=== PATIENT | male | born 1985 | race Two or more races ===

== ENCOUNTER 2020-10-23 22:49 | Emergency (ER) | payer OTHER ==
[2020-10-23 22:56] VITALS: BP 129/82; PULSE 71; TEMP 97; BMI 30.7
[2020-10-23] MEDS ORDERED: ACETAMINOPHEN 500 MG TABLET (FP) PO ONE (23:27)
[2020-10-23] MEDS ORDERED: DIPHTH,PERTUSS(ACELL),TET 0.5 ML DISP.SYRIN IM ONE ×2 (23:34→23:44)
[2020-10-23] MEDS ORDERED: ACETAMINOPHEN 500 MG TABLET (FP) ONE (23:47)
[2020-10-24] MEDS ORDERED: CYCLOBENZAPRINE HCL 5 MG TABLET PO ONE (01:09)
[2020-10-24] MEDS ORDERED: CYCLOBENZAPRINE HCL 10 MG TABLET (FP) ONE (01:13)
== END 2020-10-24 01:44 | disposition home or self-care (01) ==
LOC: JER 22:49
PROC: 3E0234Z Introduction of Serum, Toxoid and Vaccine into Muscle, Percutaneous Approach (ICD-10-PCS; principal; 2020-10-23)
DX: M62.838 Other muscle spasm (principal); M54.9 Dorsalgia, unspecified; V29.9XXA Motorcycle rider (driver) (passenger) injured in unspecified traffic accident, initial encounter; Y92.9 Unspecified place or not applicable
CPT/HCPCS: 70450-TC; 72125-TC; 72128-TC; 72131-TC; 73610-TC-LT-FY; 73630-TC-LT; 90715; 99284-25